=== PATIENT | female | born 1945 | race Caucasian/White ===

== ENCOUNTER 2016-10-15 11:56 | Inpatient (IN) | payer MEDICARE ==
[~2016-10-15] VITALS: Ht 149.9 cm; Wt 72.6 kg
[~2016-10-15 11:56] MED LIST: ASPI81 PO; BENI20TA26 PO; CRES10TA PO; HYDR10SO PO; LEVO100T75 PO
[2016-10-28] MEDS ORDERED: INSULIN HUMAN REGULAR 1,000 UNITS/10 ML VIAL SQ PRN (06:30)
[2016-10-28] MEDS ORDERED: VANCOMYCIN 1,000 MG/NS 250 ML IV SCH ×2 (06:30)
[2016-10-28] MEDS ORDERED: METOPROLOL TARTRATE 25 MG TAB PO PRN (06:30)
[2016-10-28] MEDS ORDERED: SODIUM CHLORID 0.9% 500 ML IV PRN (06:30)
[2016-10-28] MEDS ORDERED: LACTATED RINGER'S 1000 ML IV PRN (06:30)
[2016-10-28] MEDS ORDERED: CHLORHEXIDINE GLUCONATE 2 % 1 PACK (2 CLOTHS) TOPICAL PRN (06:30)
[2016-10-28] MEDS ORDERED: POVIDONE IODINE 5% (ANTISEPSIS KIT) 4 APPLICATIONS EACH NARE PRN (06:30)
[2016-10-28] MEDS ORDERED: LEVO.1 PO (06:31)
[2016-10-28] MEDS ORDERED: BENI5TAB4 PO (06:31)
[2016-10-28] MEDS ORDERED: ROSU20 PO (06:31)
[2016-10-28 06:33] VITALS: BP 142/65; PULSE 70; RESP 18; TEMP 98.1; O2SAT 94
[2016-10-28 06:47] LABS: AUTOMATED NEUTROPHIL # 2.5 TH/MM3 (1.8-7.7); BASOPHIL % 0.6 % (0.0-2.0); EOSINOPHIL # 0.3 TH/MM3 (0-0.4); EOSINOPHIL % 5.4 % (0.0-4.0); HEMATOCRIT 38.2 % (35.0-46.0); HEMO FLAGS DIFF FINAL; LYMPH % 37.4 % (9.0-44.0); LYMPHOCYTE # 2.2 TH/MM3 (1.0-4.8); MEAN CELL VOLUME 86.2 FL (80.0-100.0); MEAN CORPUSCULAR HGB CONC 34.8 % (32.0-36.0); NEUT % 42.6 % (16.0-70.0); PLATELET COUNT 137 TH/MM3 (150-450); RED BLOOD COUNT 4.43 MIL/MM3 (4.00-5.30); RED CELL DISTRIBUTION WIDTH 13.2 % (11.6-17.2); WHITE BLOOD COUNT 5.8 TH/MM3 (4.0-11.0)
[2016-10-28] MEDS ORDERED: PROTAMINE SULFATE 50 MG/5 ML VIAL ONE (07:15)
[2016-10-28] MEDS ORDERED: HEPARIN SODIUM - IV 10,000 UNITS/10 ML VIAL ONE (07:15)
[2016-10-28] MEDS ORDERED: HEPARIN SODIUM - SQ 10,000 UNITS/ML VIAL ONE (07:15)
[2016-10-28 07:16] LABS: BICARBONATE 24.1 MEQ/L (21.0-32.0); POTASSIUM 3.9 MEQ/L (3.5-5.1)
[2016-10-28] MEDS ORDERED: DEXAMETHASONE SOD PHOS 4 MG/ML VIAL ONE (07:29)
[2016-10-28] MEDS ORDERED: FAMOTIDINE 20 MG/2 ML VIAL ONE (07:29)
[2016-10-28] MEDS ORDERED: MIDAZOLAM HCL 2 MG/2 ML VIAL ONE (07:29)
[2016-10-28] MEDS ORDERED: BUPIVACAINE/EPINEPHRINE 0.25% 50 ML VIAL INFIL ONE (08:23)
--- NOTE | 2016-10-28 08:28 | EKG ---
Date Performed: 10/28/2016 Time Performed: 06:46:22 PTAGE: 71 years EKG: Sinus rhythm NORMAL ECG PREVIOUS TRACING : 01/17/2011 08.37 No significant change from previous tracing noted. DOCTOR: Zhao Casey Interpretating Date/Time 10/28/2016 08:26:48
[2016-10-28] MEDS ORDERED: ACETAMINOPHEN 1000 MG/100 ML VIAL IV ONE (09:38)
[2016-10-28] MEDS ORDERED: DO NOT ADM ANY ANTICOAGULANT DRUGS PRN (10:30)
[2016-10-28] MEDS ORDERED: POTASSIUM CHLOR 20 MEQ/100 ML x 1 BAG IV PRN (11:00)
[2016-10-28] MEDS ORDERED: MORPHINE SULFATE 4 MG/ML INJ IV PRN (11:00)
[2016-10-28] MEDS ORDERED: POTASSIUM CHLOR 20 MEQ 100 ML x 2 BAGS IV PRN (11:00)
[2016-10-28] MEDS ORDERED: POTASSIUM PHOSPHATE 21 MMOL/NS 250 ML IV PRN ×2 (11:00)
[2016-10-28] MEDS ORDERED: ASPIRIN EC 81 MG TABEC PO SCH (11:00)
[2016-10-28] MEDS ORDERED: ACETAMINOPHEN/HYDROcodone 325 MG/5 MG TAB PO PRN (11:00)
[2016-10-28] MEDS ORDERED: SODIUM CHLORIDE 0.9% FLUSH 10 ML FLUSH IV FLUSH PRN (11:00)
[2016-10-28] MEDS ORDERED: MAGNESIUM SULFATE 1 GM/100 ML IV PRN (11:00)
[2016-10-28] MEDS ORDERED: ONDANSETRON HCL 4 MG/2 ML VIAL IV PUSH PRN (11:00)
[2016-10-28] MEDS ORDERED: ERYTHROMYCIN 0.5% OPTH OINT 1 GM TUBO ONE (11:20)
[2016-10-28] MEDS ORDERED: ERYTHROMYCIN 0.5% OPTH OINT 3.5 GM TUBO RIGHT EYE ONE (11:45)
[2016-10-28] MEDS ORDERED: BALANCED SALT SOLN OPHT IRRIG 15 ML BTL RIGHT EYE ONE (11:45)
[2016-10-28] MEDS ORDERED: TETRACAINE 0.5% OPTH SOLN 4 ML BTL RIGHT EYE ONE (11:45)
[2016-10-28] MEDS ORDERED: PROPOFOL 200 MG/20 ML AMP IV ONE (13:32)
[2016-10-28] MEDS ORDERED: ePHEDrine/NS 25 MG/5 ML SYR IV ONE (13:32)
[2016-10-28 15:49] VITALS: BP 151/60; PULSE 73; RESP 18; TEMP 98; O2SAT 95
[2016-10-28] MEDS ORDERED: SODIUM CHLORIDE 0.9% FLUSH 10 ML FLUSH IV FLUSH SCH (21:00)
--- NOTE | 2016-10-29 14:36 | MP ---
cc: DIEGO MALDONADO M.D., JAMES DATE OF SURGERY October 28, 2016 PREOPERATIVE DIAGNOSIS Disabling left lower extremity ischemia. POSTOPERATIVE DIAGNOSIS Disabling left lower extremity ischemia. PROCEDURE Left femoral endarterectomy with bovine patch angioplasty. SURGEON Los Black MD PROOFER PREPRESS CATRACHO Han ANESTHESIA Local MAC. DESCRIPTION OF THE OPERATIVE PROCEDURE With the patient in the supine position and under IV sedation the lower abdomen, both groins and left thigh were thoroughly prepped with Betadine and draped in a sterile fashion. Appropriate IV antibiotic prophylaxis was administered and following a protocol time-out, skin and subcutaneous tissue within the proposed incisional area preemptively infiltrated with 1% Xylocaine with epinephrine. A curvilinear incision was performed within the left inguinal skin crease, deepened through the subcutaneous tissue. The distal external iliac, entire common femoral, proximal superficial and profunda femoral arteries were circumferentially mobilized and encircled with double loop vessel loops, collateral branches isolated with double loop 4-0 silk. The patient was systemically heparinized with 5000 units. The distal external iliac artery was occluded with a small Satinsky clamp and the SFA and profunda occluded with traction upon double loop vessel loops. A vertical arteriotomy was performed along the full length of the common femoral and extended onto the proximal superficial femoral artery. An extensive calcified atherosclerotic circumferential plaque producing at least 80-90% stenosis of the mid common femoral lumen was cleanly and completely endarterectomized. Tacking sutures secured the intima within the proximal SFA. A bovine patch was secured to the endarterectomy incision with continuous 6-0 Prolene. Prior to placement of the final sutures the arterial lumen was appropriately flushed. Flow was restored into the SFA and profunda as confirmed by robust Doppler signal. Heparin was reversed with 20 milligrams of protamine. Strict hemostasis was assured. The incision was closed with three separate deep layers of continuous 4-0 Monocryl. Skin was reapproximated with continuous subcuticular 5-0 Monocryl. Reinforced with Steri-Strips and covered with sterile gauze. Instrument, needle and sponge count were correct x2. There were no operative complications. At the conclusion of the procedure pedal Doppler flow was much improved, robust and biphasic. Los Black MD JMALOU/MIRANDA /10:33 AM /2:28 PM
== END 2016-10-28 17:32 | disposition home or self-care (01) | DRG 254 ==
LOC: HSDI 10-28 06:01 → HCIS 10-28 15:37
PROVIDERS: ADMIT Surgery Vascular Surgery; ATTEND Surgery Vascular Surgery
PROC: 04CL0ZZ Extirpation of Matter from Left Femoral Artery, Open Approach (ICD-10-PCS; principal; 2016-10-28 07:49)
DX: I70.202 Unspecified atherosclerosis of native arteries of extremities, left leg (principal)
CPT/HCPCS: 80048; 85025; 93005; J0131; J1100; J1644; J2250; J2720; J3010; J3370; J7050; J7120

== ENCOUNTER 2016-11-03 13:32 | Day surgery (SDC) | payer MEDICARE ==
[~2016-11-03 13:32] MED LIST changes: -ASPI81 PO; -BENI20TA26 PO; +BENI5TAB4 PO; -CRES10TA PO; -HYDR10SO PO; +LEVO.1 PO; -LEVO100T75 PO; +ROSU20 PO
[2016-11-03 13:55] VITALS: BP 124/50; PULSE 71; RESP 20; TEMP 97.9; O2SAT 91
--- NOTE | 2016-11-03 14:57 | PD.RAD ---
Post Procedure Progress Note Pre Procedure Diagnosis: (1) Infection Post Procedure Diagnosis: (1) Infection Procedure Date: Nov 03, 2016 Supervising Radiologist: Chidi Ernandez Proceduralist/Assist: Sandro Alarcon, RT(R), Saqib Daniel RT(R)() Anesthesia: Local Plan of Activity Patient to Unit: Nursing Unit Patient Condition: Good Additional Comments: Placed PICC line See PACS Report for procedural detail/treatment Chidi Ernandez MD Nov 03, 2016 14:57
[2016-11-03] MEDS ORDERED: SODIUM CHLORIDE 0.9% FLUSH 10 ML FLUSH IVF PRN ×2 (15:00)
[2016-11-03] MEDS ORDERED: VANCOMYCIN 1,000 MG/NS 250 ML IV ONE ×2 (15:00)
--- NOTE | 2016-11-03 17:01 | RADRPT ---
EXAM DATE/TIME: 11/03/2016 14:45 [facility] COMPARISON: No previous studies available for comparison. INDICATIONS : Patient is status post left femoral endarectomy, infection needs antibiotics. MEDICAL HISTORY : Peripheral arterial disease Cardiovascular disease AFIB SURGICAL HISTORY : Left femoral endarectomy ENCOUNTER: Initial ACUITY: 4-6 days PAIN SCORE: 0/10 FLUORO TIME: 0.21 minutes IMAGE SERIES: 1 ACCESS: Right basilic vein DEVICE(S): 1.) 4 [place] single lumen 40 cm Xcela Power PICC PROCEDURE : 1. Ultrasound guidance for venous catheterization. 2. Fluoroscopic guidance. 3. Ultrasound & fluoroscopic guided central venous Power PICC line placement. The risks, benefits and alternatives to the procedure were explained and verbal and written consent w as obtained. The site was prepped in sterile fashion. Full sterile technique was used, including ca p, mask, sterile gloves and gown and a large sterile sheet. Hand hygiene and 2% chlorhexidine prep w as utilized per protocol for cutaneous antisepsis with appropriate dry time for site. The skin and s ubcutaneous tissues were infiltrated with local anesthetic solution. Under direct ultrasound guidance, a suitable vein was accessed and a measuring guidewire was introduc ed and positioned in the central venous system. The ultrasound images depicting access guidance were saved and stored to PACS for permanent record. A Power Injectable PICC line was cut to prescribed length and introduced, positioned with tip at the cavoatrial junction level. The line was flushed and secured per protocol. CONCLUSION: 1. Uncomplicated central venous Power PICC line placement. 2. The PICC line can be used immediately. Chidi Ernandez MD on November 03, 2016 at 16:59 Board Certified Radiologist. This report was verified electronically.
[2016-11-04] MEDS ORDERED: SODIUM CHLORIDE 0.9% FLUSH 10 ML FLUSH IVF SCH (09:00)
== END 2016-11-03 16:32 | disposition home or self-care (01) ==
LOC: HROP 13:32 → HRIP 13:36 → HROP 16:32
PROVIDERS: ATTEND Surgery Vascular Surgery
DX: I97.89 Other postprocedural complications and disorders of the circulatory system, not elsewhere classified (principal); T81.4XXA Infection following a procedure, initial encounter; I73.9 Peripheral vascular disease, unspecified; I48.91 Unspecified atrial fibrillation
CPT/HCPCS: 36569; 76937; 77001; 96365; C1751; J1642; J3370; J7050

== ENCOUNTER 2016-11-08 10:30 | Inpatient (IN) | payer MEDICARE ==
[~2016-11-08] VITALS: Ht 149.9 cm; Wt 80.9 kg
[2016-11-08] VITALS (8 sets, daily range): BP systolic 104–119; BP diastolic 53–58; PULSE 72–82; RESP 16–20; TEMP 97.9–98.9; O2SAT 94–97
[2016-11-08] MEDS ORDERED: CEPH-460 PO (11:43)
[2016-11-08] MEDS ORDERED: VANC1000P IV (11:43)
[2016-11-08] MEDS ORDERED: SODIUM CHLOR 0.9% 1000 ML INJ 1,000 ML IV SCH (11:48)
--- NOTE | 2016-11-08 11:55 | PD ---
HPI Chief Complaint: Skin Problem Time Seen by Provider: 11:40 Travel History International Travel<30 days: No Contact w/Intl Traveler<30days: No Traveled to known affect area: No History of Present Illness HPI This is a 71-year-old female who center by Dr. Black for admission for postoperative infection. The patient underwent a left femoral endarterectomy on October 28. She began developing pain and redness around the wound on October 29. A PICC line was placed and she has been receiving 1 g of vancomycin daily as well as Keflex 500 mg QID over the past 6 days however her symptoms have progressed which prompted evaluation here. She reports fevers yesterday as high as 101. She endorses purulent drainage, pain, aching, constant. Her primary care physician is Dr. Mota. No other complaints. PFSH Past Medical History Asthma: No Blood Disorders: No Cancer: No Cardiovascular Problems: Yes (A FIB) High Cholesterol: Yes Chest Pain: No Congestive Heart Failure: No COPD: No Cerebrovascular Accident: Yes Coronary Artery Disease: Yes Diabetes: No Endocrine: No Genitourinary: No Hepatitis: No Hypertension: Yes Immune Disorder: No Musculoskeletal: No Neurologic: Yes (CVA) Psychiatric: No Reproductive: No Respiratory: Yes (EXSMOKER) Sleep Apnea: No Thyroid Disease: Yes ?: Not Menopausal: Yes Past Surgical History Abdominal Surgery: Yes (CHOLECYSTECTOMY) Joint Replacement: Yes (R KNEE) Oral Surgery: Yes (TONSILECTOMY) Pacemaker: No Thoracic Surgery: Yes (CAROTID) Other Surgery: Yes Social History Alcohol Use: No Tobacco Use: No Substance Use: No Allergies-Medications (Allergen,Severity, Reaction): Coded Allergies: Codeine (Verified Allergy, Mild, GASTRITIS, 11/08/16) Morphine (Verified Allergy, Mild, Itching, 11/08/16) Penicillin (Verified Allergy, Unknown, SWELLING, 11/08/16) Reported Meds & Prescriptions Reported Meds & Active Scripts Active Reported Keflex (Cephalexin) 500 Mg Capsule 500 Mg PO Q6H Vancomycin Inj (Vancomycin HCl) 1,000 Mg Inj 1,000 Mg IV DAILY Synthroid (Levothyroxine Sodium) 100 Mcg Tab 100 Mcg PO DAILY Benicar (Olmesartan) 5 Mg Tab 2.5 Mg PO DAILY Crestor (Rosuvastatin Calcium) 20 Mg Tab 20 Mg PO HS Review of Systems Except as stated in HPI: all other systems reviewed are Neg Physical Exam Narrative GENERAL: Pleasant well-developed well-nourished female in no acute distress. SKIN: Warm and dry. There is a large area of wound dehiscence to the left groin measuring 9 cm in length, there is significant amount of surrounding erythema and induration. HEAD: Atraumatic. Normocephalic. EYES: Pupils equal and round. No scleral icterus. No injection or drainage. ENT: No nasal bleeding or discharge. Mucous membranes pink and moist. NECK: Trachea midline. No JVD. CARDIOVASCULAR: Regular rate and rhythm. No murmur appreciated. RESPIRATORY: No accessory muscle use. Clear to auscultation. Breath sounds equal bilaterally. GASTROINTESTINAL: Abdomen soft, non-tender, nondistended. Hepatic and splenic margins not palpable. MUSCULOSKELETAL: No obvious deformities. Skin as noted above. NEUROLOGICAL: Awake and alert. No obvious cranial nerve deficits. Motor grossly within normal limits. Normal speech. PSYCHIATRIC: Appropriate mood and affect; insight and judgment normal. Data Data Last Documented VS Vital Signs Date Time Temp Pulse Resp B/P Pulse Ox O2 Delivery O2 Flow Rate FiO2 11/08/16 11:46 97 Room Air 11/08/16 11:46 16 11/08/16 10:32 97.9 80 119/56 Orders Complete Blood Count With Diff (11/08/16 10:42) Comprehensive Metabolic Panel (11/08/16 10:42) Lactic Acid Sepsis Protocol (11/08/16 10:42) Blood Culture (11/08/16 10:42) Iv Access Insert/Monitor (11/08/16 10:42) Oxygen Administration (11/08/16 10:42) Oximetry (11/08/16 10:42) Blood Glucose (11/08/16 10:42) Sodium Chlor 0.9% 1000 Ml Inj (Ns 1000 M (11/08/16 11:48) Hydromorphone Pf Inj (Dilaudid Pf Inj) (11/08/16 12:00) Ondansetron Inj (Zofran Inj) (11/08/16 12:00) Ceftriaxone Inj (Rocephin Inj) (11/08/16 12:30) Consult Vascular Surgery (11/08/16 ) (Hub Use Only)Inp Phy Cons/Ref (11/08/16 ) Labs Laboratory Tests Test 11/08/16 11:15 White Blood Count 10.7 TH/MM3 Red Blood Count 3.76 MIL/MM3 Hemoglobin 11.3 GM/DL Hematocrit 32.5 % Mean Corpuscular Volume 86.7 FL Mean Corpuscular Hemoglobin 30.1 PG Mean Corpuscular Hemoglobin 34.7 % Concent Red Cell Distribution Width 13.3 % Platelet Count 290 TH/MM3 Mean Platelet Volume 7.4 FL Neutrophils (%) (Auto) 68.5 % Lymphocytes (%) (Auto) 17.5 % Monocytes (%) (Auto) 11.1 % Eosinophils (%) (Auto) 2.8 % Basophils (%) (Auto) 0.1 % Neutrophils # (Auto) 7.3 TH/MM3 Lymphocytes # (Auto) 1.9 TH/MM3 Monocytes # (Auto) 1.2 TH/MM3 Eosinophils # (Auto) 0.3 TH/MM3 Basophils # (Auto) 0.0 TH/MM3 CBC Comment DIFF FINAL Differential Comment Sodium Level 140 MEQ/L Potassium Level 3.6 MEQ/L Chloride Level 104 MEQ/L Carbon Dioxide Level 27.0 MEQ/L Anion Gap 9 MEQ/L Blood Urea Nitrogen 40 MG/DL Creatinine 0.99 MG/DL Estimat Glomerular Filtration 55 ML/MIN Rate Random Glucose 99 MG/DL Lactic Acid Level 0.7 mmol/L Calcium Level 9.0 MG/DL Total Bilirubin 0.4 MG/DL Aspartate Amino Transf 13 U/L (AST/SGOT) Alanine Aminotransferase 18 U/L (ALT/SGPT) Alkaline Phosphatase 43 U/L Total Protein 6.1 GM/DL Albumin 2.8 GM/DL [facility] Medical Decision Making Medical Screen Exam Complete: Yes Emergency Medical Condition: Yes Medical Record Reviewed: Yes Interpretation(s) CBC W BC 10.7, hemoglobin 11.3 otherwise unremarkable CMP BUN 40 otherwise unremarkable Lactic 0.7 Differential Diagnosis Cellulitis, postoperative wound infection, wound dehiscence, sepsis, abscess, necrotizing fasciitis Narrative Course 71-year-old female was sent here for a progressive postoperative wound infection in the left groin. She is currently receiving IV vancomycin through a PICC line as well as Keflex orally however her symptoms have progressed. A wound culture report is been provided to me by the patient. This was performed on the left groin on November 03. The wound culture is growing out Escherichia coli susceptible to Bactrim, tobramycin, pip/tazobactam, levofloxacin, imipenem , gentamicin, ciprofloxacin, ceftriaxone, cefepime, Unasyn, ampicillin, Augmentin. The patient was given IV Rocephin. I discussed with the on-call vascular surgeon who is aware of the case and will be consult. Lab work is been reviewed. The patient was admitted to the [facility]. Diagnosis Primary Impression: Postoperative wound infection Qualified Code: T81.4XXA - Postoperative wound infection, initial encounter Additional Impression: Cellulitis of left lower extremity Admitting Information Admitting Physician Requests: it Nikita Taylor Nov 08, 2016 11:55
[2016-11-08] MEDS ORDERED: ONDANSETRON HCL 4 MG/2 ML VIAL IV PUSH ONE (12:00)
[2016-11-08] MEDS ORDERED: HYDROmorphone HCL PF 1 MG/ML VIAL IV PUSH ONE (12:00)
[2016-11-08 12:20] LABS: AUTOMATED NEUTROPHIL # 7.3 TH/MM3 (1.8-7.7); BASOPHIL % 0.1 % (0.0-2.0); EOSINOPHIL # 0.3 TH/MM3 (0-0.4); EOSINOPHIL % 2.8 % (0.0-4.0); HEMATOCRIT 32.5 % (35.0-46.0); HEMO FLAGS DIFF FINAL; LYMPH % 17.5 % (9.0-44.0); LYMPHOCYTE # 1.9 TH/MM3 (1.0-4.8); MEAN CELL VOLUME 86.7 FL (80.0-100.0); MEAN CORPUSCULAR HEMOGLOBIN 30.1 PG (27.0-34.0); MEAN CORPUSCULAR HGB CONC 34.7 % (32.0-36.0); MONO % 11.1 % (0.0-8.0); NEUT % 68.5 % (16.0-70.0); PLATELET COUNT 290 TH/MM3 (150-450); RED BLOOD COUNT 3.76 MIL/MM3 (4.00-5.30); RED CELL DISTRIBUTION WIDTH 13.3 % (11.6-17.2); WHITE BLOOD COUNT 10.7 TH/MM3 (4.0-11.0)
[2016-11-08 12:24] LABS: ALT (GPT) 18 U/L (10-53); ANION GAP 9 MEQ/L (5-15); AST (GOT) 13 U/L (15-37); BLOOD UREA NITROGEN 40 MG/DL (7-18); CHLORIDE 104 MEQ/L (98-107); GLOMERULAR FILTRATION RATE 55 ML/MIN (>89); POTASSIUM 3.6 MEQ/L (3.5-5.1); SODIUM (NA) 140 MEQ/L (136-145)
[2016-11-08 12:27] LABS: ALKALINE PHOSPHATASE 43 U/L (45-117); TOTAL BILIRUBIN ADULT 0.4 MG/DL (0.2-1.0)
[2016-11-08] MEDS ORDERED: cefTRIAXone INJ 1,000 MG in SODIUM CHLORIDE 0.9% INJ 100 ML IV ONE (12:30)
[2016-11-08] MEDS ORDERED: ACETAMINOPHEN 325 MG TAB PO PRN (13:45)
[2016-11-08] MEDS ORDERED: SODIUM CHLORIDE 0.9% FLUSH 10 ML FLUSH IV FLUSH PRN (13:45)
[2016-11-08] MEDS ORDERED: NALOXONE HCL 0.4 MG/ML AMP IV PRN (13:45)
[2016-11-08] MEDS ORDERED: VANCOMYCIN INJ 1,000 MG in SODIUM CHLOR 0.9% 250 ML INJ 250 ML IV SCH (14:00)
[2016-11-08] MEDS: HEPARIN SODIUM - SQ 10,000 UNITS/ML VIAL SQ SCH (14:00)
[2016-11-08] MEDS ORDERED: DIAZEPAM 5 MG TAB PO ONE (14:30)
[2016-11-08] MEDS: SODIUM CHLOR 0.9% 1000 ML INJ 1,000 ML IV SCH (14:51)
--- NOTE | 2016-11-08 16:50 | HHI.PR ---
Objective Objective Results - Vital Signs Date Time Temp Pulse Resp B/P Pulse Ox O2 Delivery O2 Flow Rate FiO2 11/08/16 14:00 76 16 108/54 96 Room Air 11/08/16 13:00 76 16 111/58 97 Room Air 11/08/16 12:00 72 16 104/53 97 Room Air 11/08/16 11:46 97 Room Air 11/08/16 11:46 16 97 Room Air 11/08/16 10:32 97.9 80 20 119/56 95 Room Air Result Diagram: 11/08/16 1115 11/08/16 1115 Other Results Laboratory Tests Test 11/08/16 11:15 White Blood Count 10.7 Red Blood Count 3.76 Hemoglobin 11.3 Hematocrit 32.5 Mean Corpuscular Volume 86.7 Mean Corpuscular Hemoglobin 30.1 Mean Corpuscular Hemoglobin 34.7 Concent Red Cell Distribution Width 13.3 Platelet Count 290 Mean Platelet Volume 7.4 Neutrophils (%) (Auto) 68.5 Lymphocytes (%) (Auto) 17.5 Monocytes (%) (Auto) 11.1 Eosinophils (%) (Auto) 2.8 Basophils (%) (Auto) 0.1 Neutrophils # (Auto) 7.3 Lymphocytes # (Auto) 1.9 Monocytes # (Auto) 1.2 Eosinophils # (Auto) 0.3 Basophils # (Auto) 0.0 CBC Comment DIFF FINAL Differential Comment Sodium Level 140 Potassium Level 3.6 Chloride Level 104 Carbon Dioxide Level 27.0 Anion Gap 9 Blood Urea Nitrogen 40 Creatinine 0.99 Estimat Glomerular Filtration 55 Rate Random Glucose 99 Lactic Acid Level 0.7 Calcium Level 9.0 Total Bilirubin 0.4 Aspartate Amino Transf 13 (AST/SGOT) Alanine Aminotransferase 18 (ALT/SGPT) Alkaline Phosphatase 43 Total Protein 6.1 Albumin 2.8 Date/Time Procedure Status Source Growth 11/08/16 11:25 Aerobic Blood Culture Received Blood Peripheral Pending 11/08/16 11:25 Anaerobic Blood Culture Received Blood Peripheral Pending Physical Exam Physical Exam PHYSICAL EXAMINATION GENERAL: This is a well-developed, well-nourished female who appears to be in no acute distress. She is alert and awake, []. HEAD: Normocephalic without any lesion or mass noted. Facial features appear symmetric. EYES: Perrla, Normal eye movement, [] Icterus. [] Conj congestion. OROPHARYNGEAL: Oropharynx without erythema or edema. MOUTH/THROAT: Tongue midline []. Buccal mucosa is moist []. NECK: Supple. No nuchal rigidity or lymphadenopathy. Trachea midline without deviation. Thyroid not palpable, no bruits appreciated. CARDIAC: Regular rhythm, regular rate, S1 and S2 are heard. Murmur []; no gallops or rubs. LUNGS: Clear to auscultation bilaterally. [] wheeze, [] rhonchi or [] rale. No use of accessory muscles on inspiration or expiration. ABDOMEN: Soft, nontender, no organomegaly or masses. Bowel sounds are heard in all four quadrants. No rebound. No guarding. EXTREMITIES: [] edema. Pulses equal bilateral. [] cyanosis. NEUROLOGICAL: Patient mood and affect appropriate. Cranial nerves II through XII grossly intact. Muscle strength 5/5 in the upper and lower extremities bilaterally. Deep tendon reflexes are 2+ in the upper and lower extremities bilaterally. SKIN:Warm and moist PSYCH: Mood and affect appropriate A/P Assessment and Plan patient seen and examined Please refer to Full h & p for details 71 yr old female with left femoral endarterectomy by Dr Black on 10/28. Developed post op infection, failed outpatient treatment with Vanco and po keflex. Admitted with worsening erythema and discharge from left groin cultures from Dr Black's office taken last Tuesday shows bernard sensitive E coli consult gen surgery may need i & D continue Rocephin repeat cultures continue home meds plan of care discussed with patient, daughter at bedside and nursing staff discussed with Lorin Saavedra MD Nov 08, 2016 16:50
--- NOTE | 2016-11-08 18:38 | MH ---
cc: SAUNDRA CHRISTIAN DATE OF ADMISSION 11/08/2016 REASON FOR ADMISSION left groin infection. HISTORY OF PRESENT ILLNESS The patient is a very pleasant 71-year-old female with multiple medical issues including atrial fibrillation, hyperlipidemia, coronary artery disease, history of CVA, thyroid disorder. ex-smoker. The patient underwent a left femoral endarterectomy with Dr. Black on October 28, 2016. Subsequently the patient developed pain and redness in the area around the wound on October 29. The patient was managed outpatient by Dr. Black. A PICC line was placed and she was started on IV vancomycin as well as p.o. Keflex. The patient has been getting IV antibiotics for the last 6 days however, her symptoms have progressed which prompted her evaluation in the ER. The patient reports having had a fever of 101 and endorses purulent discharge, pain, aching. This is constant in nature. The patient had cultures drawn at Dr. Black's office last Tuesday which grew E-coli which is pansensitive. The patient was referred to the emergency room by Dr. Black who is currently at [facility], for further evaluation. REVIEW OF SYSTEMS Significant for fever, pain in the groin area but otherwise is negative in all 14-systems that were reviewed. PAST MEDICAL HISTORY Significant for: 1. Atrial fibrillation. 2. Hyperlipidemia. 3. History of CVA. 4. Coronary artery disease. 5. Hypertension. 6. Ex-smoker. 7. Thyroid disease. PAST SURGICAL HISTORY Significant for: 1. Cholecystectomy. 2. Right knee replacement. 3. Tonsillectomy. 4. Carotid surgery. 5. The recent left femoral endarterectomy. SOCIAL HISTORY The patient does not drink alcohol. No substance abuse and nonsmoker. ALLERGIES INCLUDE CODEINE, THE PATIENT GETS MILD GASTRITIS. MORPHINE CAUSES MILD ITCHING. PENICILLIN WHICH CAUSES SWELLING. MEDICATIONS AT HOME Include: 1. Keflex 500 mg p.o. q.6 h. 2. Vancomycin 1 gram IV daily. 3. Synthroid 100 mcg tablet p.o. daily. 4. Benicar 5 / 2.5 milligrams daily. 5. Crestor 20 mg p.o. q.h.s. PHYSICAL EXAMINATION VITAL SIGNS: On physical examination her vital signs show a temperature of 97.9, pulse 76, respiratory rate 16, blood pressure 108/54 and she is sating 96% on room air. GENERAL: The patient is awake, alert, oriented, laying in bed, does not appear to be in any acute distress. HEENT: Pupils equally round and reactive to light and accommodation. Extraocular movement intact. No scleral icterus or conjunctival injection was noted. Oral mucosa is moist and wet. NECK: Supple, nontender. No JVD. CARDIOVASCULAR: S1-S2 regular without gallops, murmurs or rubs. RESPIRATORY: Bilateral air entry, clear to auscultation. No rales, wheezes or rhonchi. GASTROINTESTINAL: Positive bowel sounds, soft, nontender. EXTREMITIES: Have no edema. However, the groin examination shows a large area of erythematous collection about 9 cm in length in the left groin. There is a significant amount of erythema and induration. Plus copious ___ wet purulent discharge from the wound. LABORATORY DATA Pertinent lab investigations show a WBC count of 10.7, hemoglobin 11.3, hematocrit 32.5, platelet count of 290. Chemistry shows sodium 140, potassium 3.6, chloride 104, bicarb 27, BUN 40, creatinine 0.99, glucose 99. Lactic acid of 0.7, AST 13, ALT 18, alk phos 43, total protein 6.1, albumin 2.8. The patient has report of fluid culture from Dr. Black's office which shows E-coli pansensitive to antibiotics. ASSESSMENT/PLAN A 71-year-old female status post left femoral endarterectomy October 28, developed postop infection, failed outpatient treatment with IV vancomycin and p.o. Keflex. Admitted for further care. 1. We will start the patient on Rocephin. She has received vancomycin. We will consult general surgery. May need I&D at bedside. 2. We will get repeat cultures of the area. 3. Continue IV fluids. 4. Continue home medications. 5. The patient is not on any anticoagulants for atrial fibrillation. We will continue DVT prophylaxis, GI prophylaxis. 6. Plan of care discussed with the patient and daughter at bedside. Discussed with Dr. Jeffries. 7. Labs in the morning. MD ISAURO Middleton/SHENA /5:26 PM 6:16 PM
--- NOTE | 2016-11-08 19:38 | PD.CAR.PN ---
CVT Progress Note Subjective/Hospital Course: Patient underwent common femoral endarterectomy and patch angioplasty by Dr. Black about 10 days ago Patient did well postoperatively but then developed infection of the right groin which was treated on an outpatient basis and no patient is admitted to the for further care There is drainage from the left groin incision which appears to be milky whitish yellow Growth of Escherichia coli Incision measures about 4 inches by half inch in width. I do not believe that the pericardial patch is involved for it's much deeper inside and I believe this superficial infection only involving skin and subcutaneous tissue Patient has pannus hanging over the incision so it is quite conceivable to get an infection in such an anatomic situation At this point the there is no other way to manage this conservatively but take patient to the operating room debride the wound without getting the graft in place patient on intravenous antibiotics as she is and wound VAC Will take more to the operating room for debridement and wound VAC placement Full consult to michael Dixon Objective: Vital Signs Date Time Temp Pulse Resp B/P Pulse Ox O2 Delivery O2 Flow Rate FiO2 11/08/16 16:00 98.8 80 20 113/56 95 11/08/16 14:00 76 16 108/54 96 Room Air 11/08/16 13:00 76 16 111/58 97 Room Air 11/08/16 12:00 72 16 104/53 97 Room Air 11/08/16 11:46 97 Room Air 11/08/16 11:46 16 97 Room Air 11/08/16 10:32 97.9 80 20 119/56 95 Room Air Labs: Laboratory Tests Test 11/08/16 11:15 White Blood Count 10.7 TH/MM3 (4.0-11.0) Red Blood Count 3.76 MIL/MM3 (4.00-5.30) Hemoglobin 11.3 GM/DL (11.6-15.3) Hematocrit 32.5 % (35.0-46.0) Mean Corpuscular Volume 86.7 FL (80.0-100.0) Mean Corpuscular Hemoglobin 30.1 PG (27.0-34.0) Mean Corpuscular Hemoglobin 34.7 % Concent (32.0-36.0) Red Cell Distribution Width 13.3 % (11.6-17.2) Platelet Count 290 TH/MM3 (150-450) Mean Platelet Volume 7.4 FL (7.0-11.0) Neutrophils (%) (Auto) 68.5 % (16.0-70.0) Lymphocytes (%) (Auto) 17.5 % (9.0-44.0) Monocytes (%) (Auto) 11.1 % (0.0-8.0) Eosinophils (%) (Auto) 2.8 % (0.0-4.0) Basophils (%) (Auto) 0.1 % (0.0-2.0) Neutrophils # (Auto) 7.3 TH/MM3 (1.8-7.7) Lymphocytes # (Auto) 1.9 TH/MM3 (1.0-4.8) Monocytes # (Auto) 1.2 TH/MM3 (0-0.9) Eosinophils # (Auto) 0.3 TH/MM3 (0-0.4) Basophils # (Auto) 0.0 TH/MM3 (0-0.2) CBC Comment DIFF FINAL Differential Comment Sodium Level 140 MEQ/L (136-145) Potassium Level 3.6 MEQ/L (3.5-5.1) Chloride Level 104 MEQ/L (98-107) Carbon Dioxide Level 27.0 MEQ/L (21.0-32.0) Anion Gap 9 MEQ/L (5-15) Blood Urea Nitrogen 40 MG/DL (7-18) Creatinine 0.99 MG/DL (0.50-1.00) Estimat Glomerular Filtration 55 ML/MIN (>89) Rate Random Glucose 99 MG/DL (74-106) Lactic Acid Level 0.7 mmol/L (0.4-2.0) Calcium Level 9.0 MG/DL (8.5-10.1) Total Bilirubin 0.4 MG/DL (0.2-1.0) Aspartate Amino Transf 13 U/L (15-37) (AST/SGOT) Alanine Aminotransferase 18 U/L (10-53) (ALT/SGPT) Alkaline Phosphatase 43 U/L (45-117) Total Protein 6.1 GM/DL (6.4-8.2) Albumin 2.8 GM/DL (3.4-5.0) Result Diagram: 11/08/16 1115 11/08/16 1115 Leila Ham MD Nov 08, 2016 19:37
[2016-11-08] MEDS: HYDROmorphone HCL PF 1 MG/ML VIAL IV PRN (20:46)
[2016-11-08] MEDS ORDERED: oxyCODONE/ACETAMINOPHEN 5 MG/325 MG TAB PO PRN (21:00)
[2016-11-09] VITALS (9 sets, daily range): BP systolic 104–129; BP diastolic 53–57; PULSE 72–88; RESP 18–19; TEMP 97.7–99; O2SAT 92–98
[2016-11-09] MEDS: HEPARIN SODIUM - SQ 10,000 UNITS/ML VIAL SQ SCH ×2 (02:00→14:00)
[2016-11-09] MEDS: HYDROmorphone HCL PF 1 MG/ML VIAL IV PRN ×3 (02:58→20:36)
[2016-11-09] MEDS: SODIUM CHLOR 0.9% 1000 ML INJ 1,000 ML IV SCH ×3 (02:59→23:57)
[2016-11-09 06:30] LABS: BASOPHIL % 0.3 % (0.0-2.0); EOSINOPHIL # 0.2 TH/MM3 (0-0.4); EOSINOPHIL % 3.5 % (0.0-4.0); HEMATOCRIT 28.6 % (35.0-46.0); HEMO FLAGS DIFF FINAL; LYMPH % 25.8 % (9.0-44.0); LYMPHOCYTE # 1.7 TH/MM3 (1.0-4.8); MEAN CELL VOLUME 88.5 FL (80.0-100.0); MEAN CORPUSCULAR HEMOGLOBIN 29.8 PG (27.0-34.0); MEAN CORPUSCULAR HGB CONC 33.6 % (32.0-36.0); MONO % 10.6 % (0.0-8.0); NEUT % 59.8 % (16.0-70.0); PLATELET COUNT 242 TH/MM3 (150-450); RED BLOOD COUNT 3.23 MIL/MM3 (4.00-5.30); RED CELL DISTRIBUTION WIDTH 13.3 % (11.6-17.2); WHITE BLOOD COUNT 6.6 TH/MM3 (4.0-11.0)
[2016-11-09 07:05] LABS: BICARBONATE 28.8 MEQ/L (21.0-32.0); POTASSIUM 3.6 MEQ/L (3.5-5.1)
[2016-11-09] MEDS: SODIUM CHLORIDE 0.9% FLUSH 10 ML FLUSH IV FLUSH SCH ×2 (07:25→20:39)
--- NOTE | 2016-11-09 09:24 | HHI.PR ---
Subjective Remarks Awake Resting in bed Nothing by mouth for left groin surgical debridement Anxious to get it over with Afebrile, low 99 Objective Objective Results - Vital Signs Date Time Temp Pulse Resp B/P Pulse Ox O2 Delivery O2 Flow Rate FiO2 11/09/16 08:00 98.8 78 18 114/56 92 11/09/16 04:00 98.7 79 18 109/55 93 11/09/16 04:00 Room Air 11/09/16 00:04 Room Air 11/09/16 00:04 99.0 85 18 112/54 94 11/08/16 20:46 Room Air 11/08/16 20:46 98.9 82 18 113/54 94 11/08/16 20:19 80 11/08/16 16:00 98.8 80 20 113/56 95 11/08/16 14:00 76 16 108/54 96 Room Air 11/08/16 13:00 76 16 111/58 97 Room Air 11/08/16 12:00 72 16 104/53 97 Room Air 11/08/16 11:46 97 Room Air 11/08/16 11:46 16 97 Room Air 11/08/16 10:32 97.9 80 20 119/56 95 Room Air I/O 11/08/16 11/08/16 11/08/16 11/09/16 11/09/16 11/09/16 06:59 14:59 22:59 06:59 14:59 22:59 Intake Total 774 ml 654 ml Balance 774 ml 654 ml Intake IV Total 774 ml 654 ml # Voids 1 # Bowel Movements 1 Result Diagram: 11/09/1661411/09/16614 ROS General: Weakness (generalized), Other (10 point ROS done positives noted) Neuro/MS: Other (left groin pain with erythema) Physical Exam Physical Exam PHYSICAL EXAMINATION GENERAL: This is a well-developed obese female Resting in the bed She is alert and awake, HEAD: Normocephalic, atraumatic Facial features appear symmetric. OROPHARYNGEAL: Oropharynx clear NECK: Supple. Trachea midline without deviation. CARDIAC: Regular rhythm, regular rate, S1 and S2 are heard. LUNGS: Clear to auscultation bilaterally. No shortness of breath at rest ABDOMEN: Soft, nontender, no organomegaly or masses. Bowel sounds active. EXTREMITIES: No edema in lower extremities. Pulses equal bilateral NEUROLOGICAL: Patient mood and affect appropriate. No focal deficit SKIN:Warm and moist, left groin with erythema painful to touch and edema, dressing clean dry and intact A/P Assessment and Plan Vital signs monitored, patient is afebrile normal trends for now Labs monitored Bowel regimen, BM normal trends Left groin wound infection, status post left femoral endarterectomy on October 28 Appreciate general surgery consult, she is nothing by mouth for surgical debridement left groin with wound VAC placement planned IV antibiotics continue, IV fluids Cellulitis left lower extremity, secondary probable to #1, same treatment regimen Hyperlipidemia, medical management and monitor any labs needed History of coronary artery disease, stable patient denies any chest pain or shortness of breath, this too will be medical management History of CVA, medical management, asymptomatic History of tobacco abuse, monitor for any needs of oxygen or symptoms of shortness of breath, especially when patient is postop Anemia, probable secondary to chronic disease no acute blood loss noted, the patient did have surgical procedure approximately 2 weeks ago Discussed with patient Discussed with nurse Discussed with Dr. daniels, seen on her behalf Susanna Lovell Nov 09, 2016 09:24
[2016-11-09] MEDS ORDERED: PROPOFOL 200 MG/20 ML AMP IV ONE (12:00)
[2016-11-09] MEDS ORDERED: ONDANSETRON HCL 4 MG/2 ML VIAL IV PUSH ONE (12:00)
[2016-11-09] MEDS ORDERED: cefTRIAXone INJ 1,000 MG in SODIUM CHLORIDE 0.9% INJ 100 ML IV SCH (13:00)
[2016-11-09] MEDS ORDERED: FAMOTIDINE 20 MG/2 ML VIAL ONE (13:01)
[2016-11-09] MEDS ORDERED: DEXAMETHASONE SOD PHOS 4 MG/ML VIAL ONE (13:01)
[2016-11-09] MEDS ORDERED: MIDAZOLAM HCL 2 MG/2 ML VIAL ONE (13:01)
--- NOTE | 2016-11-09 13:44 | PD.ID.CON ---
History of Present Illness Service ID Consult Requested By Dr Jacob Reason for Consult wound infx Primary Care Physician Santosh Mota MD Diagnoses: History of Present Illness PLEASE DISREGARD THIS NOTE - SEE OTHER NOTE Past Family Social History Allergies: Coded Allergies: Codeine (Verified Allergy, Mild, GASTRITIS, 11/08/16) Morphine (Verified Allergy, Mild, Itching, 11/08/16) Penicillin (Verified Allergy, Unknown, SWELLING, 11/08/16) Physical Exam Vital Signs Vital Signs Date Time Temp Pulse Resp B/P Pulse Ox O2 Delivery O2 Flow Rate FiO2 11/09/16 12:00 97.7 88 18 129/57 98 11/09/16 08:00 98.8 78 18 114/56 92 11/09/16 04:00 98.7 79 18 109/55 93 11/09/16 04:00 Room Air 11/09/16 00:04 Room Air 11/09/16 00:04 99.0 85 18 112/54 94 11/08/16 20:46 Room Air 11/08/16 20:46 98.9 82 18 113/54 94 11/08/16 20:19 80 11/08/16 16:00 98.8 80 20 113/56 95 11/08/16 14:00 76 16 108/54 96 Room Air Laboratory Laboratory Tests Test 11/09/16 06:15 White Blood Count 6.6 Red Blood Count 3.23 Hemoglobin 9.6 Hematocrit 28.6 Mean Corpuscular Volume 88.5 Mean Corpuscular Hemoglobin 29.8 Mean Corpuscular Hemoglobin 33.6 Concent Red Cell Distribution Width 13.3 Platelet Count 242 Mean Platelet Volume 6.5 Neutrophils (%) (Auto) 59.8 Lymphocytes (%) (Auto) 25.8 Monocytes (%) (Auto) 10.6 Eosinophils (%) (Auto) 3.5 Basophils (%) (Auto) 0.3 Neutrophils # (Auto) 4.0 Lymphocytes # (Auto) 1.7 Monocytes # (Auto) 0.7 Eosinophils # (Auto) 0.2 Basophils # (Auto) 0.0 CBC Comment DIFF FINAL Differential Comment Sodium Level 142 Potassium Level 3.6 Chloride Level 109 Carbon Dioxide Level 28.8 Anion Gap 4 Blood Urea Nitrogen 28 Creatinine 0.73 Estimat Glomerular Filtration 78 Rate Random Glucose 112 Calcium Level 8.2 Date/Time Procedure Status Source Growth 11/08/16 17:30 Gram Stain - Final Resulted Wound Groin 11/08/16 17:30 Wound Culture - Preliminary Resulted Gram Negative Elmo 11/08/16 11:25 Aerobic Blood Culture - Preliminary Resulted Blood Peripheral NO GROWTH IN 1 DAY 11/08/16 11:25 Anaerobic Blood Culture - Preliminary Resulted Blood Peripheral NO GROWTH IN 1 DAY Result Diagram: 11/09/16 0615 11/09/16 0615 Patrica Austin MD Nov 09, 2016 13:43
[2016-11-09] MEDS ORDERED: *HYDROmorphone PF 1 MG VIAL PERIprocedural Use ONLY ONE (14:38)
[2016-11-09] MEDS ORDERED: DO NOT ADM ANY ANTICOAGULANT DRUGS PRN (16:30)
[2016-11-09] MEDS: CEFEPIME INJ 2,000 MG in SODIUM CHLORIDE 0.9% INJ 100 ML IV SCH ×2 (16:43→23:57)
[2016-11-10] VITALS (7 sets, daily range): BP systolic 110–137; BP diastolic 56–62; PULSE 72–97; RESP 16–20; TEMP 98–98.5; O2SAT 93–96
[2016-11-10] MEDS: HEPARIN SODIUM - SQ 10,000 UNITS/ML VIAL SQ SCH ×2 (01:57→14:00)
[2016-11-10] MEDS: HYDROmorphone HCL PF 1 MG/ML VIAL IV PRN ×2 (02:01→08:45)
[2016-11-10] MEDS: CEFEPIME INJ 2,000 MG in SODIUM CHLORIDE 0.9% INJ 100 ML IV SCH ×3 (06:14→23:26)
[2016-11-10] MEDS: SODIUM CHLORIDE 0.9% FLUSH 10 ML FLUSH IV FLUSH SCH ×2 (08:45→21:00)
--- NOTE | 2016-11-10 11:55 | PD.ID.CON ---
History of Present Illness Service ID Consult Requested By Dr Jacob Reason for Consult post op infx Primary Care Physician Santosh Mota MD Diagnoses: History of Present Illness 71 yo female with h/o PVD sp Left common femoral endarterectomy and patch angioplasty by Dr. Black on October 28 Patient did well postoperatively but in 2 days after d/c she noted pain in L groin with worsening swelling, redness, drainage She reports foul smelling purulent discharge On Tuesday she developped fevers and chills , temps up to 101 and presented to the hospital Dr Ham performed L groin wound debridement and wound VAC placement After surgery she feels much better and has no fever SHe is growing a gram negative bacillae She was started on Rocephine, which was switched to cefepime Review of Systems Except as stated in HPI: all other systems reviewed are Neg Past Family Social History Allergies: Coded Allergies: Codeine (Verified Allergy, Mild, GASTRITIS, 11/08/16) Morphine (Verified Allergy, Mild, Itching, 11/08/16) Penicillin (Verified Allergy, Unknown, SWELLING, 11/08/16) Past Medical History 1. Atrial fibrillation. 2. Hyperlipidemia. 3. History of CVA. 4. Coronary artery disease. 5. Hypertension. 6. Ex-smoker. 7. Thyroid disease. Past Surgical History 1. Cholecystectomy. 2. Right knee replacement. 3. Tonsillectomy. 4. Carotid surgery. 5. The recent left femoral endarterectomy. Active Ordered Medications Medications where reviewed in EMR Antibiotics Include: cefepime Family History reviewed Non-Contributory. Social History The patient does not drink alcohol. No substance abuse and cuurrently nonsmoker. H/o tobacco Physical Exam Vital Signs Vital Signs Date Time Temp Pulse Resp B/P Pulse Ox O2 Delivery O2 Flow Rate FiO2 11/10/16 04:00 98.2 72 18 110/56 95 11/10/16 04:00 Room Air 11/10/16 00:00 98.1 77 19 112/57 94 11/10/16 00:00 Room Air 11/09/16 20:36 80 11/09/16 20:00 Room Air 11/09/16 20:00 98.0 78 19 120/56 95 11/09/16 16:04 92 21 11/09/16 16:00 97.9 72 18 104/53 94 11/09/16 15:00 98.8 72 16 106/52 96 Nasal Cannula 2 11/09/16 14:45 75 15 130/56 95 Nasal Cannula 2 11/09/16 14:30 80 20 123/60 98 Nasal Cannula 2 11/09/16 14:24 98.8 82 16 134/58 98 Nasal Cannula 2 11/09/16 12:00 97.7 88 18 129/57 98 Physical Exam CONSTITUTIONAL/GENERAL: This is an obese elderly female patient, in no apparent distress. TUBES/LINES/DRAINS: SKIN: No jaundice, rashes, or lesions. Skin temperature appropriate. Not diaphoretic. HEAD: Atraumatic. Normocephalic. EYES: Pupils equal and round and reactive. Extraocular motions intact. No scleral icterus. No injection or drainage. Fundi not examined. ENT: Hearing grossly normal. Nose without bleeding or purulent drainage. Oral mucosae without visible erythema, exudates, masses, or lesions. NECK: Trachea midline. Supple, nontender. CARDIOVASCULAR: Regular rate and rhythm without murmurs, gallops, or rubs. No JVD. Peripheral pulses symmetric. RESPIRATORY/CHEST: Symmetric, unlabored respirations. Clear to auscultation. Breath sounds equal bilaterally. No wheezes, rales, or rhonchi. GASTROINTESTINAL: Abdomen soft, non-tender, nondistended. No hepato-splenomegaly , or palpable masses. No guarding. Bowel sounds present. GENITOURINARY: Without palpable bladder distension. MUSCULOSKELETAL: Extremities without clubbing, cyanosis, or edema. No joint tenderness or effusion noted. No calf tenderness. STATUS LOCALUIS: L groin with VAC in place with serosang dc erytmema edema and tender iduration noted next to VAC dressing laterlly and extending to the L laterla thigh LYMPHATICS: No palpable cervical or supraclavicular adenopathy. NEUROLOGICAL: Awake and alert. Motor and sensory grossly within normal limits. Follows commands. Clear speech. Moves all extremities. PSYCHIATRIC: No obvious anxiety/depression. no apparent hallucinations or other psychotic thought process. Laboratory Date/Time Procedure Status Source Growth 11/09/16 14:00 Gram Stain - Final Resulted Wound Groin 11/09/16 14:00 Wound Culture Resulted Wound Groin Pending 11/09/16 14:00 Fungal Smear - Final Resulted Wound Groin NO FUNGAL ELEMENTS SEEN. 11/09/16 14:00 Fungal Culture Resulted Wound Groin Pending 11/09/16 14:00 Acid Fast Stain Received Wound Groin Pending 11/09/16 14:00 Mycobacterial Culture Received Wound Groin Pending 11/08/16 11:25 Aerobic Blood Culture - Preliminary Resulted Blood Peripheral NO GROWTH IN 2 DAYS 11/08/16 11:25 Anaerobic Blood Culture - Preliminary Resulted Blood Peripheral NO GROWTH IN 2 DAYS Result Diagram: 11/09/16 0615 11/09/16 0615 Assessment and Plan Assessment and Plan PVD sp Left common femoral endarterectomy and patch angioplasty L groin infection, Gram negative - sp debridement and VAC - cont cefepime - further rec's per clx/ sensitivity result - cont VAC Patrica Austin MD Nov 10, 2016 11:55
--- NOTE | 2016-11-10 13:30 | HHI.PR ---
Subjective Remarks Awake Resting in bed Family in room visiting Wound VAC with serous light red fluid, already on second canister Afebrile (Susanna Lovell) Objective Objective Results - Vital Signs Date Time Temp Pulse Resp B/P Pulse Ox O2 Delivery O2 Flow Rate FiO2 11/10/16 04:00 98.2 72 18 110/56 95 11/10/16 04:00 Room Air 11/10/16 00:00 98.1 77 19 112/57 94 11/10/16 00:00 Room Air 11/09/16 20:36 80 11/09/16 20:00 Room Air 11/09/16 20:00 98.0 78 19 120/56 95 11/09/16 16:04 92 21 11/09/16 16:00 97.9 72 18 104/53 94 11/09/16 15:00 98.8 72 16 106/52 96 Nasal Cannula 2 11/09/16 14:45 75 15 130/56 95 Nasal Cannula 2 11/09/16 14:30 80 20 123/60 98 Nasal Cannula 2 11/09/16 14:24 98.8 82 16 134/58 98 Nasal Cannula 2 I/O 11/09/16 11/09/16 11/09/16 11/10/16 11/10/16 11/10/16 07:00 15:00 23:00 07:00 15:00 23:00 Intake Total 654 ml 973 ml 1619 ml 1147 ml Output Total 10 ml Balance 654 ml 963 ml 1619 ml 1147 ml Intake Oral 720 ml 480 ml IV Total 654 ml 473 ml 899 ml 667 ml Other 500 ml Output Estimated Blood Loss 10 ml # Voids 2 1 1 # Bowel Movements 0 (Susanna Lovell) Result Diagram: 11/09/16 0615 11/09/16 0615 ROS General: Weakness (generalized), Other (10 point ROS done positives noted) Skin: Other (wound VAC left groin) (Susanna Lovell) Physical Exam Physical Exam PHYSICAL EXAMINATION GENERAL: This is a well-developed, elderly female who appears to be in no acute distress. She is alert and awake, visiting with her grandchildren HEAD: Normocephalic Facial features appear symmetric. OROPHARYNGEAL: Oropharynx clear NECK: Supple. Trachea midline without deviation. CARDIAC: Regular rhythm, regular rate, S1 and S2 are heard. LUNGS: Clear to auscultation bilaterally. Coughed up small amount of sputum, encouraged to turn cough and deep breathe ABDOMEN: Soft, nontender, no organomegaly or masses. Bowel sounds are heard in all four quadrants. No rebound. No guarding. EXTREMITIES: No edema. Pulses equal bilateral. NEUROLOGICAL: Patient mood and affect appropriate. No focal deficit SKIN:Warm and moist (Susanna Lovell) A/P Assessment and Plan Vital signs monitored, patient is afebrile normal trends for now Labs monitored, hemoglobin post op shows some anemia 9.6, will monitor for any acute changes Acute kidney injury with mild dehydration improved today B UN 28, and current by mouth fluids, wound culture shows gram-negative rods JOSH pending Bowel regimen, patient will be placed on stool softener, laxative as needed. No BM 2 days, encourage patient to take meds today Check CBC in the morning Left groin wound infection, status post left femoral endarterectomy on October 28 Appreciate general surgery consult, surgical debridement left groin with wound VAC placement planned, post day 1 IV antibiotics continue positive wound culture with gram-negative ammy JOSH pending, wound VAC nursing and team management, second canister noted light pink tinged clear drainage Cellulitis left lower extremity, secondary probable to #1, same treatment regimen, improvement with elevation Hyperlipidemia, medical management and monitor any labs needed History of coronary artery disease, stable patient denies any chest pain or shortness of breath, this too will be medical management History of CVA, medical management, asymptomatic History of tobacco abuse, monitor for any needs of oxygen or symptoms of shortness of breath, especially when patient is postop Anemia, probable secondary to chronic disease no acute blood loss noted, the patient did have surgical procedure approximately 2 weeks ago Discussed with patient Discussed with nurse Discussed with Dr. jacob, seen on her behalf Discharge planning dependent on course of antibiotic treatment needed and wound VAC needs JOSH pending DVT prophylaxis PUD prophylaxis Pain management Nutrition, activity can be dangle, stand at bedside, chair (Susanna Lovell) Assessment and Plan patient seen and examined complaining of constipation wants Colace no fever pain controlled monitor cultures, continue wound vac and current care d/c to home with [facility] when cleared by surgery and ID plan of care discussed with patient and nursing staff d/w Susanna VELASQUEZ (Lorin Jacob MD) Susanna Lovell Nov 10, 2016 13:30 Lorin Jacob MD Nov 10, 2016 14:18
[2016-11-10] MEDS: ONDANSETRON HCL 4 MG/2 ML VIAL IVP PRN (13:47)
[2016-11-10] MEDS: SODIUM CHLOR 0.9% 1000 ML INJ 1,000 ML IV SCH (15:13)
--- NOTE | 2016-11-10 16:16 | PD.CAR.PN ---
CVT Progress Note Subjective/Hospital Course: Patient underwent common femoral endarterectomy and patch angioplasty by Dr. Black about 10 days ago Patient did well postoperatively but then developed infection of the right groin which was treated on an outpatient basis and no patient is admitted to the for further care There is drainage from the left groin incision which appears to be milky whitish yellow Growth of Escherichia coli Incision measures about 4 inches by half inch in width. I do not believe that the pericardial patch is involved for it's much deeper inside and I believe this superficial infection only involving skin and subcutaneous tissue Patient has pannus hanging over the incision so it is quite conceivable to get an infection in such an anatomic situation At this point the there is no other way to manage this conservatively but take patient to the operating room debride the wound without getting the graft in place patient on intravenous antibiotics as she is and wound VAC Will take more to the operating room for debridement and wound VAC placement Full consult to michael Dixon 11/10/16 Status post debridement of the left groin wound and placement of the wound VAC Incision is clean wound VAC in place Patient remains afebrile Excellent distal pulses Patient will need this wound VAC for about a month so she'll go home with a wound VAC At this point I would like to have VAC changed on Tuesday and then Tuesday again and then patient will be able to go home after that with a wound VAC Will increase suction 125 cm H2O Objective: Vital Signs Date Time Temp Pulse Resp B/P Pulse Ox O2 Delivery O2 Flow Rate FiO2 11/10/16 10:50 97 11/10/16 10:50 Room Air 11/10/16 04:00 98.2 72 18 110/56 95 11/10/16 04:00 Room Air 11/10/16 00:00 98.1 77 19 112/57 94 11/10/16 00:00 Room Air 11/09/16 20:36 80 11/09/16 20:00 Room Air 11/09/16 20:00 98.0 78 19 120/56 95 Result Diagram: 11/09/1615 11/09/16614 Leila Ham MD Nov 10, 2016 16:16
[2016-11-11] VITALS (7 sets, daily range): BP systolic 117–167; BP diastolic 59–72; PULSE 80–113; RESP 16–20; TEMP 98–99.8; O2SAT 88–97
[2016-11-11] MEDS: ONDANSETRON HCL 4 MG/2 ML VIAL IVP PRN (00:49)
[2016-11-11] MEDS: HEPARIN SODIUM - SQ 10,000 UNITS/ML VIAL SQ SCH ×2 (03:38→12:55)
[2016-11-11] MEDS: CEFEPIME INJ 2,000 MG in SODIUM CHLORIDE 0.9% INJ 100 ML IV SCH ×3 (06:14→23:44)
[2016-11-11 08:15] LABS: HEMATOCRIT 29.7 % (35.0-46.0); MEAN CELL VOLUME 87.5 FL (80.0-100.0); MEAN CORPUSCULAR HEMOGLOBIN 30.1 PG (27.0-34.0); MEAN CORPUSCULAR HGB CONC 34.4 % (32.0-36.0); PLATELET COUNT 276 TH/MM3 (150-450); RED BLOOD COUNT 3.39 MIL/MM3 (4.00-5.30); RED CELL DISTRIBUTION WIDTH 12.9 % (11.6-17.2); REVIEW FLAG FINAL; WHITE BLOOD COUNT 7.5 TH/MM3 (4.0-11.0)
[2016-11-11] MEDS ORDERED: FUROSEMIDE 20 MG/2 ML VIAL IV PUSH ONE (09:00)
[2016-11-11] MEDS ORDERED: POTASSIUM CHLORIDE 10 MEQ CONTROLLED RELEASE TAB PO ONE (09:00)
[2016-11-11] MEDS: DOCUSATE SODIUM 50 MG/SENNA 8.6 MG TAB PO SCH (09:00)
[2016-11-11] MEDS ORDERED: MAGNESIUM HYDROXIDE SUSP 30 ML CUP PO PRN (09:15)
[2016-11-11] MEDS: SODIUM CHLORIDE 0.9% FLUSH 10 ML FLUSH IV FLUSH SCH ×2 (09:20→21:44)
[2016-11-11] MEDS: PANTOPRAZOLE SODIUM 40 MG VIAL IV PUSH SCH ×2 (09:20→21:44)
--- NOTE | 2016-11-11 09:21 | HHI.PR ---
Subjective Remarks anxious/ mild agitatin to the point of crying nausea, no vomiting didnt sleep last night resp. short, choppy, low volumes' bibasilar rales noted BM today, small amt, firm temp 99.8, new (Susanna Lovell) Objective Objective Results - Vital Signs Date Time Temp Pulse Resp B/P Pulse Ox O2 Delivery O2 Flow Rate FiO2 11/11/16 08:00 99.8 113 18 167/71 88 11/11/16 04:00 98.0 96 20 163/72 97 11/11/16 00:00 98.0 94 20 154/70 97 11/10/16 20:00 98.0 84 20 137/61 96 11/10/16 20:00 82 11/10/16 19:00 Room Air 11/10/16 16:00 98.5 82 16 121/60 93 11/10/16 12:00 98.1 74 16 121/57 96 11/10/16 10:50 97 11/10/16 10:50 Room Air I/O 11/10/16 11/10/16 11/10/16 11/11/16 11/11/16 11/11/16 06:59 14:59 22:59 06:59 14:59 22:59 Intake Total 1147 ml 480 ml 977 ml 1125 ml Output Total 200 ml 200 ml 400 ml Balance 1147 ml 280 ml 777 ml 725 ml Intake Oral 480 ml 480 ml 255 ml IV Total 667 ml 977 ml 870 ml Output Urine Total 200 ml 200 ml 400 ml # Voids 1 # Bowel Movements 1 2 (Susanna Lovell) Result Diagram: 11/11/16 0630 11/09/16 0615 Medications and IVs Administered Medications Medications (Trade) Dose Ordered Sig/Nehemias Route PRN Reason Start Time Stop Time Status Last Admin Dose Admin Sodium Chloride (NS Flush) 2 ml BID IV FLUSH 11/09/16 09:00 11/10/16 08:45 Ondansetron HCl (Zofran Inj) 4 mg Q6H PRN IVP NAUSEA OR VOMITING 11/08/16 13:45 11/11/16 00:49 Heparin Sodium (Porcine) (Heparin Inj) 5,000 units Q12H SQ 11/08/16 14:00 11/11/16 03:38 Hydromorphone HCl 1 mg 1 mg Q6H PRN IV PAIN SCALE 6-10 11/08/16 21:00 11/10/16 08:45 Cefepime HCl/ Sodium Chloride (Maxipime Inj/NS Inj) 100 ml @ 200 mls/hr Q8H IV 11/09/16 15:00 11/11/16 06:14 (Susanna Lovell) ROS General: Fatigue, Weakness, Other (10 point ROS done positives noted) Pulmonary: Cough (with inspiration), SOB, Other (bibasilar rales this is new) GI: N/V (nausea no vomiting) Neuro/MS: Other (anxiety with borderline agitation and crying, didn't sleep at all last night) (Susanna Lovell) Physical Exam Physical Exam PHYSICAL EXAMINATION GENERAL: This is a obese female Positive for facial grimace, crying, anxious to the point of mild agitation. Didn't sleep last night HEAD: Normocephalic Facial features appear symmetric OROPHARYNGEAL: Oropharynx without erythema or edema. NECK: Supple. Trachea midline without deviation. CARDIAC: Regular rhythm, regular rate, S1 and S2 are heard. LUNGS: Diminished to auscultation bilaterally. Short choppy tachypnea respirations 30-34/m, basilar rales noted ABDOMEN: Soft, nontender, taut, . Bowel sounds are heard in all four quadrants. EXTREMITIES: no edema. Pulses equal bilateral. [] cyanosis. NEUROLOGICAL: Patient mood and affect anxious and tearful, equal hand pier runner SKIN:Warm and moist, wound VAC left groin intact no erythema noted (Susanna Lovell) A/P Assessment and Plan Vital signs monitored, patient has new low-grade fever 99 8, BP 163/72 which is slightly elevated Labs monitored, mild blood sugar elevation 112, chest x-ray ordered this a.m., still has some mild dehydration and encourage by mouth fluids, CBC shows no acute changes noted leukocytosis wound culture shows gram-negative rods, Escherichia coli JOSH on chart and sensitive to antibiotic Bowel regimen, patient patient on senna, had small bowel BM this a.m. which was firm, medical mag as needed Left groin wound infection, status post left femoral endarterectomy on October 28 Appreciate general surgery consult, surgical debridement left groin with wound VAC placement planned, post day 2 IV antibiotics continue positive wound culture with gram-negative ammy JOSH pending, wound VAC nursing and team management no noted erythema Cellulitis left lower extremity, secondary probable to #1, gradual improving maintain elevation Hyperlipidemia, medical management and monitor any labs needed History of coronary artery disease, stable patient denies any chest pain, shortness of breath with low volumes noted, 32-34 breaths a minute, new bibasal rales, IV fluids DC'd and encourage patient to continue to drink by mouth fluids , chest x-ray ordered, Lasix 20 g IV given, potassium 10 mEq by mouth given, bedside commode is at her bedside. Encouraged her to call to be up out of bed Nausea constant without emesis, added Protonix IV and encourage patient to elevate head of bed at least 30. Possible symptoms of GERD, patient is not eating much. History of CVA, medical management, asymptomatic History of tobacco abuse Possible CHF, Lasix 20 IV this morning, potassium 10 mEq 1, bibasilar rales, IV fluids DC'd , respirations 34 a minute low volumes, tachypnea Anxiety/borderline agitation, patient did not sleep well last night and has had constant nausea without emesis through the evening, requesting sleep med for tonight. She is not taking any pain meds and states she is having no pain. Anemia, probable secondary to chronic disease no acute blood loss noted, the patient did have surgical procedure approximately 2 weeks ago Discussed with patient Discussed with nurseNava Discussed with Dr. jacob, seen on her behalf Discharge planning dependent on course of antibiotic treatment needed and wound VAC needs, will check labs in the morning DVT prophylaxis PUD prophylaxis Pain management Nutrition, activity can be dangle, stand at bedside, chair (Susanna Lovell) Assessment and Plan patient seen and examined breathing improved after lasix 40 mg i/v x1 CXR noted d/c i/v fluids multiple BMs Culture: E coli anxious to go home needs something for sleep tonight; Ambien ordered discussed with patient no family at bedside discussed with Susanna VELASQUEZ awaiting ID recs for discharge patient has a PICC line (Lorin Jacob MD) Susanna Lovell Nov 11, 2016 09:21 Lorin Jacob MD Nov 11, 2016 14:04
--- NOTE | 2016-11-11 10:00 | RADRPT ---
EXAM DATE/TIME: 11/11/2016 09:37 [facility] COMPARISON: CHEST SINGLE AP, January 16, 2011, 20:41. INDICATIONS : Congestion MEDICAL HISTORY : Hypertension. SURGICAL HISTORY : None. ENCOUNTER: Initial ACUITY: 2 days PAIN SCORE: 0/10 LOCATION: chest FINDINGS: Right-sided PICC line with tip near the atriocaval junction. Diffuse slightly nodular bilateral inter stitial prominence. Slight blunting of the costophrenic angles likely reflect trace pleural effusion. This also likely minimal left basilar airspace disease. The cardiomediastinal contours are within no rmal limits. Bony thorax is intact. CONCLUSION: 1. Diffuse interstitial prominence consistent with positive fluid balance versus interstitial pneumon ia in the appropriate clinical setting. 2. Probable trace bilateral pleural effusions. 3. Mild left basilar airspace disease, likely atelectasis. Chidi Ernandez MD on November 11, 2016 at 9:55 Board Certified Radiologist. This report was verified electronically.
[2016-11-11 10:36] LABS: BICARBONATE 27.1 MEQ/L (21.0-32.0); POTASSIUM 3.4 MEQ/L (3.5-5.1)
--- NOTE | 2016-11-11 11:25 | MP ---
cc: LEILA MORLEY MD DATE OF SURGERY: 11/09/2016 PREOPERATIVE DIAGNOSIS Wound infection of the left groin. POSTOPERATIVE DIAGNOSIS Wound infection of the left groin. PROCEDURE Drainage and debridement of wound left groin, wound VAC placement. SURGEON Fatoumata. ANESTHESIA General. ESTIMATED BLOOD LOSS 10 cc. DETAILS OF PROCEDURE The patient is prepped and draped in the usual fashion. The area is explored. The patient has a wound which is infected. There is a lot of fibrinous material and some purulent material. This is removed, suctioned off and then the wound is debrided until clean granulation tissue is encountered. There is some undermining of the wound and this is opened laterally and medially. The area is irrigated with copious amounts of saline. A tissue culture is obtained. The wound is inspected once more. There is nice granulation tissue in the wound and the wound is above the fascia. It does not involve the vascular sheath or the patch; that area is closed off fortunately. A wound VAC is now placed and connected to 75 cm waterseal. The patient tolerated the procedure well. Leila MALIK/MELVIN /6:02 PM /11:13 AM
[2016-11-11] MEDS: metroNIDAZOLE 500 MG INJ 100 ML IV SCH ×2 (12:54→18:15)
--- NOTE | 2016-11-11 19:16 | PD.CAR.PN ---
CVT Progress Note Subjective/Hospital Course: Patient underwent common femoral endarterectomy and patch angioplasty by Dr. Black about 10 days ago Patient did well postoperatively but then developed infection of the right groin which was treated on an outpatient basis and no patient is admitted to the for further care There is drainage from the left groin incision which appears to be milky whitish yellow Growth of Escherichia coli Incision measures about 4 inches by half inch in width. I do not believe that the pericardial patch is involved for it's much deeper inside and I believe this superficial infection only involving skin and subcutaneous tissue Patient has pannus hanging over the incision so it is quite conceivable to get an infection in such an anatomic situation At this point the there is no other way to manage this conservatively but take patient to the operating room debride the wound without getting the graft in place patient on intravenous antibiotics as she is and wound VAC Will take more to the operating room for debridement and wound VAC placement Full consult to michael Dixon 11/10/16 Status post debridement of the left groin wound and placement of the wound VAC Incision is clean wound VAC in place Patient remains afebrile Excellent distal pulses Patient will need this wound VAC for about a month so she'll go home with a wound VAC At this point I would like to have VAC changed on Tuesday and then Tuesday again and then patient will be able to go home after that with a wound VAC Will increase suction 125 cm H2O 11/11/16 Very much decreased drainage and the wound VAC Edges of the incision clean Wound VAC changed today with nice granulation tissue on the bottom Patient can be discharged with wound VAC tomorrow Follow-up in my office in about 4 weeks Patient should go home on wound VAC for about at least 4 weeks Objective: Vital Signs Date Time Temp Pulse Resp B/P Pulse Ox O2 Delivery O2 Flow Rate FiO2 11/11/16 16:00 98.4 80 20 144/63 94 11/11/16 12:00 98.4 84 18 141/65 97 11/11/16 08:40 87 11/11/16 08:40 Nasal Cannula 2.00 11/11/16 08:00 99.8 113 18 167/71 88 11/11/16 04:00 98.0 96 20 163/72 97 11/11/16 00:00 98.0 94 20 154/70 97 11/10/16 20:00 98.0 84 20 137/61 96 11/10/16 20:00 82 Labs: Laboratory Tests Test 11/11/16 08:58 Sodium Level 147 MEQ/L (136-145) Potassium Level 3.4 MEQ/L (3.5-5.1) Chloride Level 113 MEQ/L (98-107) Carbon Dioxide Level 27.1 MEQ/L (21.0-32.0) Anion Gap 7 MEQ/L (5-15) Blood Urea Nitrogen 9 MG/DL (7-18) Creatinine 0.64 MG/DL (0.50-1.00) Estimat Glomerular Filtration 91 ML/MIN (>89) Rate Random Glucose 109 MG/DL (74-106) Calcium Level 8.3 MG/DL (8.5-10.1) Result Diagram: 11/11/16 0630 11/11/16 0858 Leila Ham MD Nov 11, 2016 19:16
[2016-11-11] MEDS ORDERED: ZOLPIDEM TARTRATE 5 MG TAB PO SCH (21:00)
[2016-11-12] VITALS (7 sets, daily range): BP systolic 137–166; BP diastolic 63–70; PULSE 75–88; RESP 18–20; TEMP 97.6–99.2; O2SAT 94–98
[2016-11-12] MEDS: HEPARIN SODIUM - SQ 10,000 UNITS/ML VIAL SQ SCH ×2 (02:00→13:59)
[2016-11-12] MEDS: metroNIDAZOLE 500 MG INJ 100 ML IV SCH ×2 (03:12→10:25)
[2016-11-12] MEDS: CEFEPIME INJ 2,000 MG in SODIUM CHLORIDE 0.9% INJ 100 ML IV SCH (05:20)
--- NOTE | 2016-11-12 07:49 | HHI.PR ---
Subjective Remarks No acute shortness of breath at rest Patient's awake responding to verbal stimuli feeling somewhat better but still very anxious and begging to go home Wound VAC left groin, drainage has slowed down considerably Temp 99.2 (Susanna Lovell) Objective Objective Results - Vital Signs Date Time Temp Pulse Resp B/P Pulse Ox O2 Delivery O2 Flow Rate FiO2 11/12/16 04:00 98.5 88 20 159/70 96 11/12/16 00:00 99.2 87 20 137/63 95 11/11/16 21:44 Room Air 11/11/16 20:00 98.2 85 16 117/59 97 11/11/16 19:00 Nasal Cannula 2.00 11/11/16 16:00 98.4 80 20 144/63 94 11/11/16 12:00 98.4 84 18 141/65 97 11/11/16 08:40 87 11/11/16 08:40 Nasal Cannula 2.00 11/11/16 08:00 99.8 113 18 167/71 88 I/O 11/11/16 11/11/16 11/11/16 11/12/16 11/12/16 11/12/16 06:59 14:59 22:59 06:59 14:59 22:59 Intake Total 1125 ml 360 ml 240 ml 2491 ml Output Total 400 ml Balance 725 ml 360 ml 240 ml 2491 ml Intake Oral 255 ml 360 ml 240 ml 1600 ml IV Total 870 ml 891 ml Output Urine Total 400 ml # Voids 5 2 2 # Bowel Movements 2 5 0 0 (Susanna Lovell) Result Diagram: 11/11/16 0630 11/11/16 0858 Other Results Last Impressions Chest X-Ray 11/11/16 0000 Signed Impressions: Service Date/Time: October 09:37 - CONCLUSION: 1. Diffuse interstitial prominence consistent with positive fluid balance versus interstitial pneumonia in the appropriate clinical setting. 2. Probable trace bilateral pleural effusions. 3. Mild left basilar airspace disease, likely atelectasis. Chidi Ernandez MD Medications and IVs Administered Medications Medications (Trade) Dose Ordered Sig/Nehemias Route PRN Reason Start Time Stop Time Status Last Admin Dose Admin Sodium Chloride (NS Flush) 2 ml BID IV FLUSH 11/09/16 09:00 11/12/16 09:25 Ondansetron HCl (Zofran Inj) 4 mg Q6H PRN IVP NAUSEA OR VOMITING 11/08/16 13:45 11/11/16 00:49 Heparin Sodium (Porcine) (Heparin Inj) 5,000 units Q12H SQ 11/08/16 14:00 11/11/16 12:55 Hydromorphone HCl (Dilaudid Pf Inj) 1 mg Q6H PRN IV PAIN SCALE 6-10 11/08/16 21:00 11/12/16 10:19 Pantoprazole Sodium (Protonix Inj) 40 mg Q12H IV PUSH 11/11/16 09:00 11/12/16 09:25 Zolpidem Tartrate (Ambien) 5 mg HS PO 11/11/16 21:00 11/11/16 21:45 (Susanna Lovell) ROS General: Fatigue, Weakness (10 point ROS done positives noted) Pulmonary: Cough (occasional) Neuro/MS: Other (moderate anxiety to the point of being tearful want to go home , wound VAC (1) (Susanna Lovell) Physical Exam Physical Exam PHYSICAL EXAMINATION GENERAL: This is a well-developed, obese female resting in the bed She is awake, anxiety over one to go home. HEAD: Normocephalic Facial features appear symmetric. OROPHARYNGEAL: Oropharynx without erythema or edema. NECK: Supple. No nuchal rigidity or lymphadenopathy. Trachea midline without deviation. CARDIAC: Regular rhythm, regular rate, S1 and S2 are heard. Murmur LUNGS: Mild minimal diminished sounds in her bases to auscultation bilaterally. No active shortness of breath noted ABDOMEN: Soft, nontender Bowel sounds are heard in all four quadrants. No rebound. No guarding. EXTREMITIES: No edema. Pulses equal bilateral. NEUROLOGICAL: Patient mood and affect with anxiety SKIN:Warm and moist (Susanna Lovell) A/P Assessment and Plan Vital signs monitored, patient has new low-grade fever 99 2, Labs monitored, mild hypokalemia, 20 mEq of potassium given 1, BMP ordered for tomorrow wound culture shows gram-negative rods, Escherichia coli JOSH on chart and sensitive to antibiotic Bowel regimen, patient patient on senna, had small bowel BM this a.m. which was firm, medical management Left groin wound infection, status post left femoral endarterectomy on October 28 Appreciate general surgery consult, surgical debridement left groin with wound VAC placement planned, post day 3 IV antibiotics continue positive wound culture with gram-negative ammy JOSH pending, wound VAC nursing and team management no noted erythema Cellulitis left lower extremity, gradual improvement, no when VAC changed to be done today and Tuesday, then possible discharge according to surgical note. Ordered home vac, for discharge planning Hyperlipidemia, medical management and monitor any labs needed History of coronary artery disease, no further symptoms of shortness of breath since IV fluids DC'd Nausea resolved no complaints today, encourage nutrition and by mouth fluids normal range History of CVA, medical management, asymptomatic History of tobacco abuse Possible CHF, Lasix 20 IV this morning, potassium 10 mEq 1, bibasilar rales, IV fluids DC'd , respirations 34 a minute low volumes, tachypnea Anxiety/borderline agitation, patient did not sleep well last night and has had constant nausea without emesis through the evening, requesting sleep med for tonight. She is not taking any pain meds and states she is having no pain. Anemia, probable secondary to chronic disease no acute blood loss noted, the patient did have surgical procedure approximately 2 weeks ago Discussed with patient Discussed with nurse, Discussed with Dr. jacob, seen on her behalf Discussed with case management, signed papers and radiology practitioner assistant's with ordering home wound VAC Discharge planning dependent on course of antibiotic treatment needed and wound VAC needs, patient very tearful want to go home today, discussed discharge planning for Tuesday a.m. unless changed per consult DVT prophylaxis PUD prophylaxis Pain management Nutrition, activity out of bed with assistance (Susanna Lovell) Assessment and Plan patient seen and examined ok to d/c home with wound vac and HHC per surgery discussed with case management: wound vac will be delivered today discussed with ID: ok to d/c on Po levofloxacin and Flagyl for 14 days d/c PICC line ok to d/c home with HHC plan of acre discussed with patient discussed with Susanna VELASQUEZ (Lorin Jacob MD) Susanna Lovell Nov 12, 2016 07:49 Lorin Jacob MD Nov 12, 2016 14:15
[2016-11-12 07:54] LABS: HEMATOCRIT 29.3 % (35.0-46.0); MEAN CELL VOLUME 87.5 FL (80.0-100.0); MEAN CORPUSCULAR HEMOGLOBIN 29.3 PG (27.0-34.0); MEAN CORPUSCULAR HGB CONC 33.5 % (32.0-36.0); PLATELET COUNT 289 TH/MM3 (150-450); RED BLOOD COUNT 3.35 MIL/MM3 (4.00-5.30); RED CELL DISTRIBUTION WIDTH 12.8 % (11.6-17.2); REVIEW FLAG FINAL; WHITE BLOOD COUNT 6.9 TH/MM3 (4.0-11.0)
[2016-11-12] MEDS ORDERED: POTASSIUM CHLORIDE 20 MEQ CONTROLLED RELEASE TAB PO ONE (08:00)
--- NOTE | 2016-11-12 08:27 | HHI.FF ---
Face to Face Verification Diagnosis: (1) Infection (2) Postoperative wound infection (3) Cellulitis of left lower extremity Home Health Nursing Order: Wound care and dressing changes Nursing assessment with vital signs Instructions: wound vac change lt. groin Tuesday. Tue. I have seen patient Che Stein on 11/12/16. My clinical findings support the need for the requested home health care services because: Limited ability to care for self Need for psychosocial assistance High risk of falls I certify that my clinical findings support that this patient is homebound because: Post-op weakness Unsteady gait/balance Susanna Lovell Nov 12, 2016 08:27
[2016-11-12] MEDS: DOCUSATE SODIUM 50 MG/SENNA 8.6 MG TAB PO SCH (09:00)
[2016-11-12] MEDS: SODIUM CHLORIDE 0.9% FLUSH 10 ML FLUSH IV FLUSH SCH (09:25)
[2016-11-12] MEDS: PANTOPRAZOLE SODIUM 40 MG VIAL IV PUSH SCH (09:25)
[2016-11-12] MEDS: HYDROmorphone HCL PF 1 MG/ML VIAL IV PRN (10:19)
[2016-11-12] MEDS ORDERED: LEVOFLOXACIN 750 MG TAB PO SCH (12:00)
--- NOTE | 2016-11-12 12:13 | PD.WCN.NOT ---
Neg Pressure Wound Therapy Wound Location Wound Location: L groin Wound Description Length: 1.6 cm Width: 17cm Depth: 2.8 cm Underminin to 3 o'clock, deepest at 3 o'clock 2.8cm Wound bed appearance: 100% clean red non granulation tissue Periwound appearance: Other (Erythema from 1 to 4 o'clock due to drape irritation . Slightly indurated from 12 to 3 'clock) Settings Suction: 125 mmHg, Continuous Intensity: Low Other Information: Bridged Foam type: Black Number of pieces: 1 Additonal Information Patient seen for wound VAC dressing change to L groin. Patient premedicated with IV 1mg Dilaudid before dressing change.Dressing change completed with [employer] BROWN and typewriter repairer. Adhesive remover used to remove VAC drape in place. Soaked foam in place with normal saline for 5 minutes before removal. Cleansed wound with wound cleanser. Skin prep applied to Periwound and before applying drape for bridge to L anterior thigh. Applied 1 long strip of VAC granufoam into wound bed packed in to undermined areas and pulled back ~1cm to allow for tissue growth. Stoma paste used to seal VAC dressing. Covered all exposed foam with VAC drape. Sensi trac pad applied to L anterior thigh bridge. Wound VAC suctioning at 125 mm/hg without leaks. Lowered bed to safe height before leaving room. Rachel Weaver ANTOINETTEN Nov 12, 2016 12:13
[2016-11-12] MEDS ORDERED: LEVA750T9 PO (14:17)
[2016-11-12] MEDS ORDERED: METR-1 PO (14:17)
[2016-11-12] MEDS ORDERED: OXYC1TAB63 PO (14:17)
--- NOTE | 2016-11-12 14:33 | PD.CAR.PN ---
CVT Progress Note Subjective/Hospital Course: Patient underwent common femoral endarterectomy and patch angioplasty by Dr. Black about 10 days ago Patient did well postoperatively but then developed infection of the right groin which was treated on an outpatient basis and no patient is admitted to the for further care There is drainage from the left groin incision which appears to be milky whitish yellow Growth of Escherichia coli Incision measures about 4 inches by half inch in width. I do not believe that the pericardial patch is involved for it's much deeper inside and I believe this superficial infection only involving skin and subcutaneous tissue Patient has pannus hanging over the incision so it is quite conceivable to get an infection in such an anatomic situation At this point the there is no other way to manage this conservatively but take patient to the operating room debride the wound without getting the graft in place patient on intravenous antibiotics as she is and wound VAC Will take more to the operating room for debridement and wound VAC placement Full consult to michael Dixon 11/10/16 Status post debridement of the left groin wound and placement of the wound VAC Incision is clean wound VAC in place Patient remains afebrile Excellent distal pulses Patient will need this wound VAC for about a month so she'll go home with a wound VAC At this point I would like to have VAC changed on Tuesday and then Tuesday again and then patient will be able to go home after that with a wound VAC Will increase suction 125 cm H2O 11/11/16 Very much decreased drainage and the wound VAC Edges of the incision clean Wound VAC changed today with nice granulation tissue on the bottom Patient can be discharged with wound VAC tomorrow Follow-up in my office in about 4 weeks Patient should go home on wound VAC for about at least 4 weeks 11/12/16 Wound VAC has been replaced today and the area looks very nice and clean granulating Excellent distal pulses Both feet warm Patient can be discharged today with follow-up in my office in about a month Wound VAC should be continued for about a month delay see patient in the office for this is a fairly deep wound Objective: Vital Signs Date Time Temp Pulse Resp B/P Pulse Ox O2 Delivery O2 Flow Rate FiO2 11/12/16 13:42 98 Nasal Cannula 2.00 11/12/16 12:00 98.0 75 20 159/67 96 11/12/16 08:50 Nasal Cannula 2.00 11/12/16 08:00 97.6 84 20 156/69 94 11/12/16 08:00 83 11/12/16 04:00 98.5 88 20 159/70 96 11/12/16 00:00 99.2 87 20 137/63 95 11/11/16 21:44 Room Air 11/11/16 20:00 81 11/11/16 20:00 98.2 85 16 117/59 97 11/11/16 19:00 Nasal Cannula 2.00 11/11/16 16:00 98.4 80 20 144/63 94 Labs: Laboratory Tests Test 11/12/16 07:20 White Blood Count 6.9 TH/MM3 (4.0-11.0) Red Blood Count 3.35 MIL/MM3 (4.00-5.30) Hemoglobin 9.8 GM/DL (11.6-15.3) Hematocrit 29.3 % (35.0-46.0) Mean Corpuscular Volume 87.5 FL (80.0-100.0) Mean Corpuscular Hemoglobin 29.3 PG (27.0-34.0) Mean Corpuscular Hemoglobin 33.5 % Concent (32.0-36.0) Red Cell Distribution Width 12.8 % (11.6-17.2) Platelet Count 289 TH/MM3 (150-450) Mean Platelet Volume 6.4 FL (7.0-11.0) Result Diagram: 11/12/16 0720 11/11/16 0858 Leila Ham MD Nov 12, 2016 14:33
--- NOTE | 2016-11-12 16:33 | HHI.DS ---
Discharge Summary Admission Date Nov 08, 2016 at 13:35 Discharge Date: Nov 12, 2016 Admitting Diagnosis postoperative wound infection, cellulitis Procedures I&D Brief History Patient underwent common femoral endarterectomy and patch angioplasty approximately 2 weeks ago . After going home developed fever and erythema at lt. groin surgical site. Admission for I&D and IV antibiotics and treatment for cellulitis CBC/BMP: 11/12/16 0720 11/11/16 0858 Significant Findings Laboratory Tests Test 11/11/16 11/11/16 11/12/16 06:30 08:58 07:20 Red Blood Count 3.39 MIL/MM3 3.35 MIL/MM3 (4.00-5.30) (4.00-5.30) Hemoglobin 10.2 GM/DL 9.8 GM/DL (11.6-15.3) (11.6-15.3) Hematocrit 29.7 % 29.3 % (35.0-46.0) (35.0-46.0) Sodium Level 147 MEQ/L (136-145) Potassium Level 3.4 MEQ/L (3.5-5.1) Chloride Level 113 MEQ/L (98-107) Random Glucose 109 MG/DL (74-106) Calcium Level 8.3 MG/DL (8.5-10.1) Mean Platelet Volume 6.4 FL (7.0-11.0) Imaging Last Impressions Chest X-Ray 11/11/16 0000 Signed Impressions: Service Date/Time: October 09:37 - CONCLUSION: 1. Diffuse interstitial prominence consistent with positive fluid balance versus interstitial pneumonia in the appropriate clinical setting. 2. Probable trace bilateral pleural effusions. 3. Mild left basilar airspace disease, likely atelectasis. Chidi Ernandez MD PE at Discharge PHYSICAL EXAMINATION GENERAL: This is a well-developed, obese female resting in the bed She is awake, anxiety over one to go home. HEAD: Normocephalic Facial features appear symmetric. OROPHARYNGEAL: Oropharynx without erythema or edema. NECK: Supple. No nuchal rigidity or lymphadenopathy. Trachea midline without deviation. CARDIAC: Regular rhythm, regular rate, S1 and S2 are heard. Murmur LUNGS: Mild minimal diminished sounds in her bases to auscultation bilaterally. No active shortness of breath noted ABDOMEN: Soft, nontender Bowel sounds are heard in all four quadrants. No rebound. No guarding. EXTREMITIES: No edema. Pulses equal bilateral. NEUROLOGICAL: Patient mood and affect with anxiety SKIN:Warm and moist Hospital Course Patient was treated for Post op lt. groin wound infection. Surgery approximately 2 weeks ago. Other diagnosis listed were monitored and treated per her plan of care. Vital signs monitored q 4 hr and prn. patient has new low-grade fever , was treated with IV antibiotics and IVF. Labs monitored throughout stay. , mild hypokalemia, 20 mEq of potassium given 1 , wound culture shows gram-negative rods, Escherichia coli JOSH on chart and sensitive to antibiotic Bowel regimen, patient patient on senna, had small bowel BM this a.m. which was firm, medical management Left groin wound infection, status post left femoral endarterectomy on October 28 Appreciate general surgery consult, surgical debridement left groin with wound VAC placement planned, post day 3 IV antibiotics continue positive wound culture with gram-negative ammy JOSH pending, wound VAC nursing and team management no noted erythema Cellulitis left lower extremity, gradual improvement, no when VAC changed to be done today and Tuesday, then possible discharge according to surgical note. Ordered home vac, for discharge planning Hyperlipidemia, medical management and monitor any labs needed History of coronary artery disease, no further symptoms of shortness of breath since IV fluids DC'd Nausea resolved no complaints today, encourage nutrition and by mouth fluids normal range History of CVA, medical management, asymptomatic History of tobacco abuse Possible CHF, Lasix 20 IV this morning, potassium 10 mEq 1, bibasilar rales, IV fluids DC'd , respirations 34 a minute low volumes, tachypnea, IVF dcd, diuesis mild for her SOB. COmpensated and stablized in 24 hrs. Anxiety/borderline agitation, patient did not sleep well last night and has had constant nausea without emesis through the evening, requesting sleep med for tonight. She is not taking any pain meds and states she is having no pain. Anemia, probable secondary to chronic disease no acute blood loss noted, the patient did have surgical procedure approximately 2 weeks ago Discharge planning dependent on course of antibiotic treatment needed and wound VAC needs, patient very tearful want to go home today, discussed discharge planning with Dr. Jacob, surgeon agreed for DC today after wound vac changed and Picc line removed. DVT prophylaxis PUD prophylaxis Pain management Nutrition, activity out of bed with assistance patient seen and examined per Dr. Cecil flowers to d/c home with wound vac and HHC per surgery discussed with case management: wound vac will be delivered today discussed with ID: ok to d/c on Po levofloxacin and Flagyl for 14 days d/c PICC line ok to d/c home with HHC plan of acre discussed with patient Stable on dc. Pt Condition on Discharge: Stable Discharge Disposition: Disch w/ Home Health Serv Discharge Instructions DIET: Follow Instructions for: Heart Healthy Diet Activities you can perform: Regular-No Restrictions New Medications: Levofloxacin (Levaquin) 750 Mg Tablet 750 MG PO Q24H infection Days 14 TAB Metronidazole (Flagyl) 500 Mg Tab 500 MG PO Q8H infection Days 14 TAB Oxycodone-Acetaminophen (Oxycodone-Acetaminophen) 5-325 mg Tab 1 TAB PO Q6H PRN PAIN SCALE 1-5 Days 7 TAB Continued Medications: Levothyroxine (Synthroid) 100 Mcg Tab 100 MCG PO DAILY Thyroid #30 Ref 0 TAB Olmesartan (Benicar) 5 Mg Tab 2.5 MG PO DAILY Blood Pressure Management #30 Ref 0 TAB Rosuvastatin (Crestor) 20 Mg Tab 20 MG PO HS Cholesterol Management #30 Ref 0 TAB Discontinued Medications: Cephalexin (Keflex) 500 Mg Capsule 500 MG PO Q6H Infection Ref 0 CAP Vancomycin Inj (Vancomycin Inj) 1,000 Mg Inj 1000 MG IV DAILY Infection Ref 0 Susanna Szymanski Nov 12, 2016 16:33
[2016-11-12] MEDS ORDERED: metroNIDAZOLE 500 MG TAB PO SCH (18:00)
== END 2016-11-12 17:55 | disposition home health service (06) | DRG 863 ==
LOC: NEPE 10:30 → NEDA 13:35 → N04B 15:20
PROVIDERS: ADMIT Internal Medicine; ATTEND Internal Medicine
PROC: 0HDJXZZ Extraction of Left Upper Leg Skin, External Approach (ICD-10-PCS; principal; 2016-11-09 13:29)
DX: T81.4XXA Infection following a procedure, initial encounter (principal); I50.9 Heart failure, unspecified; L03.116 Cellulitis of left lower limb; I48.91 Unspecified atrial fibrillation; E78.00 Pure hypercholesterolemia, unspecified; Z86.73 Personal history of transient ischemic attack (TIA), and cerebral infarction without residual deficits; I25.10 Atherosclerotic heart disease of native coronary artery without angina pectoris; I10 Essential (primary) hypertension; Z87.891 Personal history of nicotine dependence; E07.9 Disorder of thyroid, unspecified; Z96.651 Presence of right artificial knee joint; Y83.8 Other surgical procedures as the cause of abnormal reaction of the patient, or of later complication, without mention of misadventure at the time of the procedure; Y92.009 Unspecified place in unspecified non-institutional (private) residence as the place of occurrence of the external cause; E78.5 Hyperlipidemia, unspecified; D63.8 Anemia in other chronic diseases classified elsewhere; E65 Localized adiposity; R09.89 Other specified symptoms and signs involving the circulatory and respiratory systems; E87.6 Hypokalemia; F41.9 Anxiety disorder, unspecified; T81.89XA Other complications of procedures, not elsewhere classified, initial encounter; Z76.0 Encounter for issue of repeat prescription; Z51.81 Encounter for therapeutic drug level monitoring
CPT/HCPCS: 71010; 80048; 80053; 80202; 82565; 83605; 85025; 85027; 87015; 87040; 87070; 87077; 87102; 87116; 87176; 87186; 87205; 87206; 96361; 96365; 96375; C9113; J0692; J0696; J1100; J1170; J1644; J1940; J2250; J2405; J3010; J3370; J7030; J7050